=== PATIENT | female | born 1960 | race Caucasian/White ===

== ENCOUNTER 2024-07-03 09:32 | Day surgery (SDC) | payer OTHER ==
[~2024-07-03] VITALS: Ht 154.9 cm; Wt 79.8 kg
[2024-07-03] MEDS ORDERED: MIDAZOLAM 5 MG/5 ML VIAL ONE (10:00)
[2024-07-03] MEDS ORDERED: fentaNYL citrate 0.05 MG/ML VIAL ONE (10:00)
[2024-07-03] MEDS ORDERED: LIDOCAINE 2% 100 MG/5 ML UJET TP ONE (10:00)
[2024-07-03] MEDS: MIDAZOLAM 2 MG/2 ML VIAL IVP ONE (10:06)
[2024-07-03] MEDS: fentaNYL citrate 0.05 MG/ML VIAL IVP ONE (10:08)
== END 2024-07-03 12:10 | disposition home or self-care (01) ==
LOC: MDS 09:32 → MMU 09:32 → MDS 12:10
PROVIDERS: ATTEND Internal Medicine Gastroenterology
DX: Z12.11 Encounter for screening for malignant neoplasm of colon (principal); K57.30 Diverticulosis of large intestine without perforation or abscess without bleeding; K21.9 Gastro-esophageal reflux disease without esophagitis; K29.70 Gastritis, unspecified, without bleeding; Z79.899 Other long term (current) drug therapy
CPT/HCPCS: 36415; 43239; 45378; 86677; J2250; J3010